=== PATIENT | female | born 1995 | race Caucasian/White ===

== ENCOUNTER → 2022-11-04 16:39 | Outpatient (REF) | payer SELFPAY ==
[2022-11-04 17:34] LABS: Absolute Lymphocyte Count 3.38 X10^3/uL (0.83-4.51); Absolute Neutrophil Count 4.2 X10^3/uL (2.0-7.7); Basophil# 0.02 X10^3/uL; Basophil% 0.3 % (0-1); Eosinophil# 0.07 X10^3/uL; Eosinophils% 0.9 % (0-5); Hematocrit 44.5 % (37-47); Hemoglobin 15.3 g/dL (12.0-15.0); Lymphocyte # 3.38 X10^3/ul (0.83-4.51); Lymphocyte % 42.4 % (19-41); Mean Corp Hgb Conc 34.4 g/dL (32-36); Mean Corpuscular Hgb 29.4 pg (27.0-32.0); Mean Corpuscular Volume 85.6 fL (81-99); Mean Platelet Vol. 9.5 fl (6.2-12.0); Monocyte# 0.31 X10^3/uL; Monocyte% 3.9 % (0-10); NRBC Flagged by Analyzer 0 % (0-5); Neutrophil # 4.18 X10^3/uL (2.7-7.7); Neutrophil % 52.2 % (47-70); Platelet Count 344 K/mm3 (150-450); RBC Distribution Width CV 12.4 % (11.6-14.6); RBC Distribution Width SD 38.5 fl (35.1-43.9)
[2022-11-04 17:51] LABS: ALB/GLOB Ratio 1.1 RATIO (0.9-2.4); AST(SGOT) 23 U/L (15-37); Alanine Aminotransfer ALT/SGPT 35 U/L (13-56); Albumin, Serum 4.3 g/dL (3.2-5.0); Alkaline Phosphatase 76 U/L (45-117); Anion Gap 7 (5-15); BUN 9 mg/dL (7-18); BUN/Creat Ratio 10.7 RATIO (10-20); Calcium,Total 9.7 mg/dL (8.5-10.1); Chloride 105 mmol/L (98-107); Creatinine, Serum 0.84 mg/dL (0.55-1.02); EST Glomerular Filtration Rate 85 mL/min (>60); Est Glom Filt Rate - Afr Amer 102 mL/min (>60); Estradiol 21.8 pg/mL; Ferritin 28 ng/mL (8-252); Follicle Stimulating Hormone 3.7 mIU/mL; Globulin 3.8 g/dL (2.2-4.2); Glucose 115 mg/dL (74-106); Iron 164 ug/dL (50-170); Luteinizing Hormone 1.7 mIU/mL; Potassium 4.3 mmol/L (3.5-5.1); Protein, Total 8.1 g/dL (6.4-8.2); Sodium Level 139 mmol/L (136-145)
== END ==
LOC: LABSPEC 16:39
PROVIDERS: Visit Provider Nurse Practitioner Family
DX: N94.6 Dysmenorrhea, unspecified (principal); R53.82 Chronic fatigue, unspecified; A69.8 Other specified spirochetal infections
CPT/HCPCS: 80053; 82627; 82670; 82728; 83001; 83002; 83540; 84144; 84403; 85025; 82626